=== PATIENT | male | born 1995 | race Caucasian/White ===

== ENCOUNTER 2022-08-17 20:35 | Emergency (ER) | payer BC ==
[2022-08-17] MEDS ORDERED: HYDROmorphone 1 MG/ML Syringe IM ONE (20:48)
[2022-08-17] MEDS ORDERED: Orphenadrine 100 MG Tab.ER PO ONE (21:38)
== END 2022-08-17 22:00 | disposition home or self-care (01) ==
LOC: JD.ED 20:35
DX: S29.012A Strain of muscle and tendon of back wall of thorax, initial encounter (principal); S20.212A Contusion of left front wall of thorax, initial encounter; Z88.0 Allergy status to penicillin; X50.9XXA Other and unspecified overexertion or strenuous movements or postures, initial encounter
CPT/HCPCS: 71101; 96372; 99284; A9270; J1170; 99283